=== PATIENT | female | born 1990 | race Two or more races ===

== ENCOUNTER 2023-01-19 05:50 | Day surgery (SDC) | payer OTHER ==
[~2023-01-19] VITALS: Ht 160 cm; Wt 54.9 kg
== END 2023-01-19 20:45 | disposition home or self-care (01) ==
LOC: CIR.AMB 05:50
PROVIDERS: ATTEND Student in an Organized Health Care Education/Training Program
DX: N84.0 Polyp of corpus uteri (principal); N92.1 Excessive and frequent menstruation with irregular cycle; D25.0 Submucous leiomyoma of uterus; Z20.822 Contact with and (suspected) exposure to COVID-19; I10 Essential (primary) hypertension

== ENCOUNTER 2025-01-14 11:17 | Emergency (ER) | payer OTHER ==
[~2025-01-14] VITALS: Ht 160 cm; Wt 54.9 kg
[2025-01-14] MEDS ORDERED: BENZONATATE 100 MG CAPSULE PO STA (15:02)
[2025-01-14 15:18] LABS: BASO % 0.3 % (0.1-1.2); EOS # 0.28 (0.04-0.54); EOS % 1.7 % (0.7-7.0); HEMATOCRIT 27.3 % (34.1-44.9); HEMOGLOBIN 10.1 g/dL (11.2-15.7); LYMPH # 4.39 (1.18-3.74); LYMPH % 26.4 % (19.3-53.1); MEAN CORPUSCULAR HEMOGLOBIN 29.1 pg (25.6-32.2); MONO # 0.94 (0.24-0.82); MONO % 5.6 % (4.7-12.5); NEUT # 10.89 (1.56-6.13); NEUT % 65.4 % (34.0-71.1); PLATELET COUNT 281 K/uL (163-369); RED BLOOD COUNT 3.47 M/uL (3.93-5.22); RED CELL DISTRIBUTION WIDTH 18.1 % (11.6-14.4)
[2025-01-14 15:50] LABS: COVID-19 AG NEGATIVE (NEGATIVE)
[2025-01-14 15:59] LABS: ALBUMIN 3.9 gm/dL (3.4-5.0); BILIRUBIN TOTAL 3.4 mg/dL (0.3-1.2); CALCIUM 8.8 mg/dL (8.5-10.1); CREATININE SERUM 0.79 mg/dL (0.55-1.02); GFR 83.31; GLOBULINA 4.2 G/DL (2.4-3.5); POTASSIUM 3.4 mEq/L (3.5-5.1); TOTAL PROTEIN 8.1 gm/dL (6.4-8.2)
[2025-01-14 16:01] LABS: INFLUENZA A AG POSITIVE (NEGATIVE)
[2025-01-14 17:28] LABS: PH,URINE 5.5 (5.0-8.0); URINE APPEARANCE Clear; URINE BILIRRUBIN Negative (NEGATIVE); URINE BLOOD Negative; URINE COLOR Yellow; URINE GLUCOSE Negative (NEGATIVE); URINE KETONE Negative (NEGATIVE); URINE LEUKOCYTE Large; URINE NITRATE Negative; URINE PROTEIN 30 (NEGATIVE)
[2025-01-14 17:31] LABS: URINE BACTERIA 1636.2 uL (0.0-1933); URINE RBC 3.5 uL (0.0-20.8); URINE WBC 288.9 uL (0.0-23.2)
[2025-01-14 17:45] LABS: URINE CAST 0.14 uL (0.0-1.40)
[2025-01-14] MEDS ORDERED: GILTUSS HONEY118 ML PO (18:17)
[2025-01-14] MEDS ORDERED: CIPRO500 MG PO (18:17)
[2025-01-14] MEDS ORDERED: BENZONATATE200 M1 PO (18:17)
== END 2025-01-14 18:45 | disposition home or self-care (01) ==
LOC: ER 11:53
PROVIDERS: General Practice; Preventive Medicine Public Health & General Preventive Medicine
DX: J10.1 Influenza due to other identified influenza virus with other respiratory manifestations (principal); N39.0 Urinary tract infection, site not specified; Z20.822 Contact with and (suspected) exposure to COVID-19

== ENCOUNTER 2025-02-01 09:40 | Outpatient (CLI) | payer OTHER ==
[~2025-02-01 09:40] MED LIST: BENZONATATE200 M1 PO; CIPRO500 MG PO; GILTUSS HONEY118 ML PO
[2025-02-01 11:22] LABS: BASO % 0.5 % (0.1-1.2); EOS # 0.19 (0.04-0.54); EOS % 1.9 % (0.7-7.0); HEMATOCRIT 29.3 % (34.1-44.9); HEMOGLOBIN 10.8 g/dL (11.2-15.7); LYMPH # 1.88 (1.18-3.74); LYMPH % 19.1 % (19.3-53.1); MEAN CORPUSCULAR HEMOGLOBIN 29.8 pg (25.6-32.2); MONO % 5.1 % (4.7-12.5); NEUT # 7.16 (1.56-6.13); NEUT % 72.8 % (34.0-71.1); PLATELET COUNT 252 K/uL (163-369); RED BLOOD COUNT 3.63 M/uL (3.93-5.22); RED CELL DISTRIBUTION WIDTH 18.2 % (11.6-14.4)
[2025-02-01 11:55] LABS: ALBUMIN 4.1 gm/dL (3.4-5.0); BILIRUBIN TOTAL 3.98 mg/dL (0.3-1.2); CALCIUM 9.1 mg/dL (8.5-10.1); CREATININE SERUM 0.56 mg/dL (0.55-1.02); GFR 123.92; GLOBULINA 3.2 G/DL (2.4-3.5); POTASSIUM 3.68 mEq/L (3.5-5.1); TOTAL PROTEIN 7.3 gm/dL (6.4-8.2); TSH 1.4 uIU/mL (0.358-3.74)
[2025-02-03 10:14] LABS: MANUAL PLATELET COUNT 246
[2025-02-03 10:19] LABS: FOLIC ACID 19.82 ng/ml (4.78-20); VITAMIN D3 25 HYDROXY 34.37 ng/ml (30-120)
== END 2025-02-01 09:57 | disposition home or self-care (01) ==
LOC: LAB 09:40
PROVIDERS: ATTEND Internal Medicine Hematology & Oncology
DX: D58.0 Hereditary spherocytosis (principal); D50.8 Other iron deficiency anemias; I10 Essential (primary) hypertension; R74.02 Elevation of levels of lactic acid dehydrogenase [LDH]; K76.89 Other specified diseases of liver; D51.8 Other vitamin B12 deficiency anemias; E55.9 Vitamin D deficiency, unspecified; Z13.29 Encounter for screening for other suspected endocrine disorder; E03.8 Other specified hypothyroidism; E06.3 Autoimmune thyroiditis; D51.1 Vitamin B12 deficiency anemia due to selective vitamin B12 malabsorption with proteinuria; R79.9 Abnormal finding of blood chemistry, unspecified